=== PATIENT | male | born 1995 | race American Indian/Alaskan Native ===

== ENCOUNTER 2017-06-01 07:31 | Emergency (ER) | payer SELFPAY ==
[2017-06-01 07:38] VITALS: BMI 23.3
[2017-06-01 07:40] VITALS: BP 128/83; PULSE 79; RESP 16; TEMP 98.6; O2SAT 97
[2017-06-01] MEDS ORDERED: Lidocaine 2% Inj (20ml) ONE (07:58)
[2017-06-01] MEDS ORDERED: Bacitracin 500 Units/gm Oint Foilpak UD ONE (08:32)
--- NOTE | 2017-06-01 12:16 | C.PDOC ---
History Of Present Illness 21 y/o male presents to the ED c/o laceration underneath his left eyebrow. The patient states that it occurred last night at 7pm while playing basketball. The patient denies LOC, vision change, and headache. Chief Complaint (Nursing): Abnormal Skin Integrity History Per: Patient History/Exam Limitations: no limitations Onset/Duration Of Symptoms: Hrs Current Symptoms Are (Timing): Still Present Additional History Per: Patient Past Medical History Reviewed: Historical Data, Nursing Documentation, Vital Signs Vital Signs: Last Vital Signs Temp 98.6 F 06/01/17 07:39 Pulse 79 06/01/17 07:39 Resp 16 06/01/17 07:39 BP 128/83 06/01/17 07:39 Pulse Ox 97 06/01/17 12:28 Surgical History: No Surg Hx Family History: States: No Known Family Hx - Social History Hx Alcohol Use: No Hx Substance Use: No - Immunization History Hx Tetanus Toxoid Vaccination: Yes Hx Influenza Vaccination: No Hx Pneumococcal Vaccination: No Review Of Systems Except As Marked, All Systems Reviewed And Found Negative. Constitutional: Negative for: Sweats Eyes: Negative for: Pain, Vision Change, Eyelid Inflammation Skin: Positive for: Other (laceration underneath the left eye brow). Negative for: Rash, Bruising Physical Exam - Physical Exam Appears: Non-toxic, No Acute Distress Skin: Warm, No Rash, Other (2cm laceration underneath the left eye brow and no active bleeding ) Head: Atraumatic, Normacephalic Eye(s): bilateral: Normal Inspection Oral Mucosa: Moist Neck: Supple Chest: Symmetrical Cardiovascular: Rhythm Regular Respiratory: Normal Breath Sounds Gastrointestinal/Abdominal: Soft, No Tenderness, No Guarding, No Rebound Back: Normal Inspection Extremity: Capillary Refill (2<sec.) Neurological/Psych: Oriented x3 Gait: Steady ED Course And Treatment O2 Sat by Pulse Oximetry: 97 (RA) Progress Note: Plan: suturing with 2% Lidocaine , and 5 interrupted sutures of 60 nylon. The patient tolerated the sterile conditions of the procedure very well. Upon reassessment, the patient does not have any dizziness and visual change. The patient is advised to have a 1-2 day follow up with his PMD for further evaluation. Disposition - Disposition Referrals: Enoc Garzon, [Non-Staff] - Disposition: HOME/ ROUTINE Disposition Time: 08:25 Condition: IMPROVED Additional Instructions: Thank you for letting us take care of you today. The emergency medical care you received today was directed at your acute symptoms. If you were prescribed any medication, please fill it and take as directed. It may take several days for your symptoms to resolve. Return to the Emergency Department if your symptoms worsen, do not improve, or if you have any other problems. Please contact your doctor or call one of the physicians/clinics you have been referred to that are listed on the Patient Visit Information form that is included in your discharge packet. Bring any paperwork you were given at discharge with you along with any medications you are taking to your follow up visit. Our treatment cannot replace ongoing medical care by a primary care provider (PCP) outside of the emergency department. Thank you for allowing the [facility] team to be part of your care today. Stitches need to stay clean and dry at all times. Stitches need to come out in 5 days by a physician. Instructions: Care For Your Stitches (ED), Laceration (ED) Forms: Giving Assistant (Spanish) - Clinical Impression Clinical Impression: Laceration - Scribe Statement The provider has reviewed the documentation as recorded by the Scribe Denise Khoury
== END 2017-06-01 08:51 | disposition home or self-care (01) ==
LOC: C.ER 07:31
DX: S01.112A Laceration without foreign body of left eyelid and periocular area, initial encounter (principal); X58.XXXA Exposure to other specified factors, initial encounter; Y93.67 Activity, basketball